=== PATIENT | female | born 1995 | race Caucasian/White ===

== ENCOUNTER 2017-11-21 04:32 | Inpatient (IN) | payer OTHER ==
[2017-11-21] MEDS ORDERED: IBUPROFEN 600 MG TAB PO (05:30)
[2017-11-21] MEDS ORDERED: CARBOPROST 250 MCG INJ IM ×2 (05:30→16:30)
[2017-11-21] MEDS: PENICILLIN G K 2,500,000 UNITS in DEXTROSE 5% 50 ML IVPB ×3 (05:30→13:05)
[2017-11-21] MEDS ORDERED: BUTORPHANOL 2 MG INJ IV (05:30)
[2017-11-21] MEDS ORDERED: MISOPROSTOL 200 MCG TAB PR ×2 (05:30→16:30)
[2017-11-21] MEDS ORDERED: LIDOCAINE 1% (MPF) 30 ML INJ INJ (05:30)
[2017-11-21] MEDS ORDERED: OXYTOCIN 30 UNITS/LR 500 ML IV ×3 (05:30→16:30)
[2017-11-21] MEDS: LACTATED RINGER'S 1,000 ML IV ×3 (05:50→15:39)
[2017-11-21] MEDS: PENICILLIN G K 5,000,000 UNITS in DEXTROSE 5% 100 ML IVPB (05:50)
[2017-11-21 05:57] LABS: ADD MAN DIFF? NO
[2017-11-21 06:10] LABS: BASOPHILS % 0.3 % (0.0-2.0); EOSINOPHILS # 0.1 10^3/ul (0.0-0.5); EOSINOPHILS % 0.4 % (0.0-7.0); LYMPHOCYTES # 1.7 10^3/ul (0.8-2.9); LYMPHOCYTES % 10.8 % (18.0-55.0); MEAN CORPUSCULAR HEMOGLOBIN 31.5 pg (29.0-33.0); MEAN CORPUSCULAR HGB CONC 32.4 g/dl (32.0-37.0); MEAN CORPUSCULAR VOLUME 97.1 fl (72.0-104.0); MONOCYTE # 0.9 10^3/ul (0.3-0.9); MONOCYTES % 5.5 % (0.0-13.0); NEUTROPHIL # 12.6 10^3/ul (1.6-7.5); NEUTROPHILS % 81.9 % (30.0-74.0); PLATELET COUNT 300 10^3/UL (140-415); RED BLOOD COUNT 3.81 10^6/ul (4.20-5.40)
[2017-11-21 06:10] LABS: WHITE BLOOD COUNT 15.4 10^3/ul (4.8-10.8)
[2017-11-21 06:18] LABS: INR 0.87; PROTIME 11.9 Sec (11.9-14.9); PT RATIO 0.9
[2017-11-21 06:19] LABS: PARTIAL THROMBOPLASTIN TIME 30.2 Sec (25.0-35.0)
[2017-11-21 07:00] LABS: HEPATITIS B SURFACE ANTIGEN NEGATIVE (NEGATIVE)
[2017-11-21] MEDS ORDERED: MINERAL OIL LIGHT 10 ML VIAL TOP (07:00)
[2017-11-21] MEDS ORDERED: FENTAnyl 2MCG/ML-ROPIV 0.2% 100 ML (07:00)
[2017-11-21] MEDS ORDERED: ONDANSETRON 4 MG INJ IV ×2 (08:30→16:30)
[2017-11-21] MEDS ORDERED: NALOXONE (0.4 MG/ML) INJ IV (08:30)
[2017-11-21] MEDS: FENTAnyl 2MCG/ML-ROPIV 0.2% 100 ML BAG EPI ×2 (08:36→14:18)
[2017-11-21] MEDS: ACETAMINOPHEN 325 MG TAB PO (14:26)
[2017-11-21] MEDS: METHYLERGONOVINE 0.2 MG INJ IM (16:03)
[2017-11-21] MEDS: OXYTOCIN 30 UNITS/LR 500 ML IV ×2 (16:04→16:56)
[2017-11-21] MEDS ORDERED: NACL 0.9% 3 ML SYG IV (16:30)
[2017-11-21] MEDS ORDERED: METHYLERGONOVINE 0.2 MG INJ IM (16:30)
[2017-11-21] MEDS ORDERED: OXYCODONE/ASPIRIN (4.88/325) TAB PO ×2 (16:30)
[2017-11-21] MEDS: IBUPROFEN 600 MG TAB PO ×2 (18:00→23:34)
[2017-11-21 18:20] LABS: ADD MAN DIFF? NO
[2017-11-21 18:25] LABS: WHITE BLOOD COUNT 18.2 10^3/ul (4.8-10.8)
[2017-11-21 18:25] LABS: BASOPHILS % 0.2 % (0.0-2.0); EOSINOPHILS % 0.1 % (0.0-7.0); HEMATOCRIT 36.3 % (37.0-47.0); HEMOGLOBIN 11.6 g/dl (12.0-16.0); LYMPHOCYTES # 1.9 10^3/ul (0.8-2.9); LYMPHOCYTES % 10.4 % (18.0-55.0); MEAN CORPUSCULAR VOLUME 97.1 fl (72.0-104.0); MEAN PLATELET VOLUME 10.9 fl (7.4-10.4); MONOCYTE # 1.2 10^3/ul (0.3-0.9); MONOCYTES % 6.4 % (0.0-13.0); NEUTROPHILS % 82.2 % (30.0-74.0); PLATELET COUNT 297 10^3/UL (140-415); RED BLOOD COUNT 3.74 10^6/ul (4.20-5.40); RED CELL DISTRIBUTION WIDTH 13.9 % (11.5-14.5)
[2017-11-21] MEDS: WITCH HAZEL/GLYCERIN PAD PR (20:45)
[2017-11-21] MEDS: BENZOCAINE 20% 56 ML SPRAY TOP (20:45)
[2017-11-21 23:16] LABS: RAPID PLASMA REAGIN NONREACTIVE (NR)
[2017-11-22] MEDS: IBUPROFEN 600 MG TAB PO ×3 (05:55→17:52)
[2017-11-22 08:51] LABS: ADD MAN DIFF? NO
[2017-11-22 08:56] LABS: BASOPHIL # 0.1 10^3/ul (0.0-0.1); BASOPHILS % 0.3 % (0.0-2.0); EOSINOPHILS # 0.1 10^3/ul (0.0-0.5); EOSINOPHILS % 0.6 % (0.0-7.0); HEMATOCRIT 33.6 % (37.0-47.0); HEMOGLOBIN 10.7 g/dl (12.0-16.0); LYMPHOCYTES # 2.3 10^3/ul (0.8-2.9); LYMPHOCYTES % 11.9 % (18.0-55.0); MEAN CORPUSCULAR HEMOGLOBIN 31.3 pg (29.0-33.0); MEAN CORPUSCULAR HGB CONC 31.8 g/dl (32.0-37.0); MEAN CORPUSCULAR VOLUME 98.2 fl (72.0-104.0); MEAN PLATELET VOLUME 10.3 fl (7.4-10.4); MONOCYTE # 1.3 10^3/ul (0.3-0.9); MONOCYTES % 6.8 % (0.0-13.0); NEUTROPHIL # 15.3 10^3/ul (1.6-7.5); NEUTROPHILS % 79.8 % (30.0-74.0); PLATELET COUNT 279 10^3/UL (140-415); RED BLOOD COUNT 3.42 10^6/ul (4.20-5.40)
[2017-11-22 08:56] LABS: WHITE BLOOD COUNT 19.2 10^3/ul (4.8-10.8)
[2017-11-23] MEDS: IBUPROFEN 600 MG TAB PO ×4 (05:32→18:01)
[2017-11-23 09:36] LABS: ADD MAN DIFF? NO
[2017-11-23 09:39] LABS: BASOPHIL # 0.1 10^3/ul (0.0-0.1); BASOPHILS % 0.4 % (0.0-2.0); EOSINOPHILS # 0.3 10^3/ul (0.0-0.5); EOSINOPHILS % 1.6 % (0.0-7.0); HEMATOCRIT 34.2 % (37.0-47.0); HEMOGLOBIN 10.7 g/dl (12.0-16.0); MEAN CORPUSCULAR HEMOGLOBIN 31.8 pg (29.0-33.0); MEAN CORPUSCULAR HGB CONC 31.3 g/dl (32.0-37.0); MEAN CORPUSCULAR VOLUME 101.5 fl (72.0-104.0); MONOCYTE # 0.8 10^3/ul (0.3-0.9); MONOCYTES % 4.7 % (0.0-13.0); NEUTROPHIL # 13.2 10^3/ul (1.6-7.5); NEUTROPHILS % 80.3 % (30.0-74.0); PLATELET COUNT 294 10^3/UL (140-415); RED BLOOD COUNT 3.37 10^6/ul (4.20-5.40); RED CELL DISTRIBUTION WIDTH 13.9 % (11.5-14.5)
[2017-11-23 09:39] LABS: WHITE BLOOD COUNT 16.5 10^3/ul (4.8-10.8)
== END 2017-11-23 20:10 | disposition home or self-care (01) | DRG 775 ==
LOC: OBT 04:32 → L-D 04:34 → OBT 05:16 → L-D 05:18 → PP1 18:14
PROVIDERS: Obstetrics & Gynecology
PROC: 10E0XZZ Delivery of Products of Conception, External Approach (ICD-10-PCS; principal; 2017-11-21)
PROC: 0HQ9XZZ Repair Perineum Skin, External Approach (ICD-10-PCS; 2017-11-21)
DX: O70.0 First degree perineal laceration during delivery (principal); Z3A.38 38 weeks gestation of pregnancy; Z37.0 Single live birth
CPT/HCPCS: 62319; 85025; 85610; 85730; 86592; 86850; 86900; 86901; 87340